=== PATIENT | female | born 1995 | race Two or more races ===

== ENCOUNTER 2025-01-21 18:39 | Emergency (ER) | payer OTHER, SELFPAY ==
[2025-01-21 18:39] VITALS: BMI 38.6
[2025-01-21 18:51] VITALS: BP 124/82; PULSE 88; RESP 18; TEMP 36.6; O2SAT 98
--- NOTE | 2025-01-21 19:06 | PD.EDBACK ---
ED Back Injury Pain RME/HPI General Chief Complaint: Back Pain/Injury Stated Complaint: WK INJURY TO BACK TODAY Time Seen by Provider: 01/21/25 19:04 Arrival date/time: 01/21/25 18:39 29F with no significant PMH presents to ED with low back pain after lifting a lot of heavy boxes at work. Patient denies bowel/bladder incontinence, fall/trauma, and saddle paresthesia. Limitations: no limitations Related Data Previous Rx's ?Medication ?Instructions ?Recorded bacitracin 500 unit/gram topical 1 applicatio topical Q12H #14 grams 03/27/19 ointment naproxen 500 mg tablet (Naprosyn) 500 mg PO BID PRN pain #30 tabs 05/02/19 Allergies Allergy/AdvReac Type Severity Reaction Status Date / Time No Known Allergies Allergy Verified 01/21/25 18:41 Review of Systems Review of Systems Systems Reviewed: All systems reviewed, normal except as documented Constitutional Constitutional: Reports system reviewed and no additional complaints, except as documented, Denies fever(s) and Denies headache(s) ENT Ears, Nose, Mouth, and Throat: Denies disequilibrium and Denies headache(s) Cardiovascular Cardiovascular: Reports system reviewed and no additional complaints, except as documented, Denies chest pain and Denies dyspnea Respiratory Respiratory: Reports system reviewed and no additional complaints, except as documented, Denies cough and Denies dyspnea Gastrointestinal Gastrointestinal: Reports system reviewed and no additional complaints, except as documented, Denies abdominal pain, Denies nausea and Denies vomiting Musculoskeletal Musculoskeletal: Reports as per HPI and Reports back pain Neurologic Neurologic: Reports system reviewed and no additional complaints, except as documented, Denies confusion, Denies disequilibrium and Denies headache(s) Psychiatric Psychiatric: Denies confusion Past Medical History Past Medical History CARDIAC: Negative Congestive Heart Failure RESPIRATORY: Negative Chronic Obstructive Pulmonary Disease (COPD) GENITOURINARY: Negative Renal Disease ENDOCRINE: Negative Diabetes Mellitus Type 1 or Diabetes Mellitus Type 2 Social History SMOKING STATUS: Never smoker ED Exam General Limitations: Present no limitations General appearance: Present alert and in no apparent distress Head Head exam: Present atraumatic Eye Eye exam: Present normal appearance, PERRL and EOMI ENT ENT exam: Present normal exam, normal oropharynx and mucous membranes moist Neck Neck exam: Present normal inspection, full ROM and trachea midline Chest Chest inspection: Present normal inspection and symmetric chest wall rise Respiratory Respiratory exam: Present normal lung sounds bilaterally Cardiovascular Cardiovascular exam: Present regular rate, normal rhythm and normal heart sounds Abdominal Exam Abdominal exam: Present soft and normal bowel sounds Extremities Exam Extremities exam: Present normal inspection and full ROM Back Exam Back exam: Present normal inspection and full ROM Neurological Exam Neurological exam: Present alert, oriented X3 and CN II-XII intact Psychiatric Psychiatric exam: Present normal affect and normal mood Skin Skin exam: Present warm, dry, intact and normal color Course Quality Measures none Orders Category Date Time Status Baclofen [Lioresal] Med 01/21/25 19:05 Discontinued 10 mg PO X1 ONE Ketorolac Inj [Toradol Inj] Med 01/21/25 19:05 Discontinued 60 mg IM X1 ONE Vital Signs Vital signs: Vital Signs Temperature 98 F 01/21/25 18:51 Pulse Rate 88 01/21/25 18:51 Respiratory Rate 18 01/21/25 18:51 Blood Pressure 124/82 01/21/25 18:51 Pulse Oximetry (%) 98 01/21/25 18:51 Oxygen Delivery Method Room Air 01/21/25 18:51 O2 at 98% on RA and WNLs Back Pain / Injury MDM Narrative MDM Narrative:: 29F with no significant PMH presents to ED with low back pain after lifting a lot of heavy boxes at work. Patient denies bowel/bladder incontinence, fall/trauma, and saddle paresthesia. Physical exam reveals uncomfortable-appearing female. Patient is afebrile and alert. Meds and prison classification counselor given. Patient data External records reviewed:: [facility] previous records Clinical information provided by:: patient Social determinants that could affect healthcare access:: none Patient has the following chronic illnesses:: none How is presenting disease/condition affected by chronic disease/condition?: no chronic disease Evaluation data The following diagnostics were reviewed and interpreted by me:: other (specify) (none) Lab and/or radiology exams considered but not ordered:: not ordered Interpretation Summary: n/a Medications / Prescriptions Medications or Prescriptions considered but not ordered:: ordered Medication administrations:: Medication Administration History Discontinued Medications Baclofen (Baclofen 10 Mg Tablet) 10 mg PO X1 ONE Stop: 01/21/25 19:06 Last Admin: 01/21/25 19:25 Dose: 10 mg Documented By: MAINE Ketorolac Tromethamine (Ketorolac Inj 60 Mg/2 Ml Vial) 60 mg IM X1 ONE Stop: 01/21/25 19:06 Last Admin: 01/21/25 19:22 Dose: 60 mg Documented By: JE above Consultations Consultation(s) initiated? (list below): No Diagnosis Differential diagnosis back pain/injury: lumbar radiculopathy, sciatica, strain of lumbar region, renal colic, pyelonephritis, thoracic back pain, AAA and discitis Most likely diagnosis given after review of the tests above:: strain of lumbar region Admission Indicated Admission indicated?: not indicated Admission Request Was there a request for admission?: No Disposition Plan Disposition Plan: Discharge Discharge Attestation Discharge Attestation: The patient and all family members were given an opportunity to ask questions and understood the discharge instructions. Discharge instructions specifically effects, indications for sooner follow up or return to the emergency department, and the expected course of current diagnosis. Patient condition: Stable Discharge Plan Plan Patient Disposition: HOME (Self Care) Discharge Disposition comment: Stable Prescriptions/Referrals Prescriptions/Med Rec: No Action naproxen [Naprosyn] 500 mg tablet 500 mg PO BID PRN (Reason: pain) Qty: 30 0RF bacitracin 500 unit/gram ointment 1 applicatio TOPICAL Q12H Qty: 14 0RF Referrals: Jeff Wilson MD [Primary Care Provider] - In 1 week Problem List Clinical Impression: Strain of lumbar region Patient/Caregiver Discharge Instructions Education Materials: ED Back Sprain/Strain Additional Instructions: Please follow-up with PCP within 24-48 hours and return immediately if symptoms worsen. If problem persists, recommend outpatient PT and/or MRI follow-up. In the meantime, rest, use ice/heat, and/or compression. Print Language: Romanian Stand Alone Forms: Patient Portal Info Letter FRANK/FORENSIC SCIENCE TECHNICIAN Supervising Physician FRANK/ALMA Supervising Physician: Dr. Maria
[2025-01-21] MEDS: KETOROLAC INJ 60 MG/2 ML VIAL IM (19:22)
[2025-01-21] MEDS: BACLOFEN 10 MG TABLET PO (19:25)
== END 2025-01-21 19:56 | disposition home or self-care (01) ==
PROVIDERS: Emergency Provider Emergency Medicine; PCP Family Medicine
DX: S39.012A Strain of muscle, fascia and tendon of lower back, initial encounter (principal); X50.0XXA Overexertion from strenuous movement or load, initial encounter
CPT/HCPCS: 96372; 99282; J1885; A9270

== ENCOUNTER 2025-03-01 22:33 | Observation (INO) | payer MEDICAID, SELFPAY ==
[2025-03-01 22:34] VITALS: BMI 37.8
--- NOTE | 2025-03-01 22:42 | EDNOTE_ITS ---
ED Abdominal Pain RME/HPI General Chief Complaint: Abdominal Pain Stated complaint: RUQ PAIN Time seen by provider: 03/01/25 23:04 Arrival date/time: 03/01/25 22:33 RME / HPI RME / HPI narrative: See [facility] for Dr. Good's HPI documentation. Related Data Previous Rx's ?Medication ?Instructions ?Recorded bacitracin 500 unit/gram topical 1 applicatio topical Q12H #14 grams 03/27/19 ointment naproxen 500 mg tablet (Naprosyn) 500 mg PO BID PRN pa in #30 tabs 05/02/19 Allergies Allergy/AdvReac Type Severity Reaction Status Date / Time No Known Allergies Allergy Verified 01/21/25 18:41 Review of Systems Review of Systems Systems Reviewed: All systems reviewed, normal except as documented Past Medical History Past Medical History CARDIAC: Negative Congestive Heart Failure RESPIRATORY: Negative Chronic Obstructive Pulmonary Disease (COPD) GENITOURINARY: Negative Renal Disease ENDOCRINE: Negative Diabetes Mellitus Type 1 or Diabetes Mellitus Type 2 Social History SMOKING STATUS: Never smoker ED Exam Narrative Physical exam: See [facility] for Dr. Good's physical exam documentation. Course Quality Measures none Orders Category Date Time Status MRI Screening NOW Care 03/02/25 01:57 Active Saline [Insert IV] NOW Care 03/01/25 23:05 Active MR MRCP Stat Exams 03/02/25 Ordered US gall bladder Stat Exams 03/01/25 23:06 Taken Amylase Stat Lab 03/01/25 23:20 Completed Bilirubin,Direct Stat Lab 03/01/25 23:20 Completed CBC Stat Lab 03/01/25 23:20 Completed CMP [Comprehensive Metabolic Panel] Stat Lab 03/01/25 23:20 Completed HCG,Qualitative Serum Stat Lab 03/01/25 23:20 Completed Lipase Stat Lab 03/01/25 23:20 Completed Magnesium Stat Lab 03/01/25 23:20 Completed UA, C/S IF [Urinalysis, C/S if Indicated] Stat Lab 03/01/25 23:42 Completed Urine Culture Stat Lab 03/01/25 23:42 Received Ketorolac Inj [Toradol Inj] Med 03/01/25 23:05 Discontinued 30 mg IVP X1 ONE Morphine* Inj Med 03/01/25 23:05 Discontinued 4 mg IV X1 ONE Ondansetron Inj [Zofran Inj] Med 03/01/25 23:05 Discontinued 4 mg IVP X1 ONE Piper/Tazo 3.375 gm Premix [Zosyn] Med 03/02/25 01:58 Discontinued 3.375 gm in 50 ml IV X1 Sodium Chloride 0.9% 1000 ml [Ns] 1,000 ml Med 03/02/25 02:31 Active IV 200 mls/hr Sodium Chloride 0.9% 1000 ml [Ns] 1,000 ml Med 03/01/25 23:05 Discontinued IV 999 mls/hr cefTRIAXone/D5w 1gm IV premix [Rocephin/D5w 1gm IV Med 03/02/25 00:05 Discontinued premix] 1 gm in 50 ml IV X1 Vital Signs Vital signs: Vital Signs Temperature 98.7 F 03/01/25 23:03 Pulse Rate 82 03/01/25 23:03 Respiratory Rate 20 03/01/25 23:03 Blood Pressure 146/85 H 03/01/25 23:03 Pulse Oximetry (%) 99 03/01/25 23:03 Oxygen Delivery Method Room Air 03/01/25 23:03 Abdominal Pain MDM MDM Narrative MDM Narrative:: This section includes all my notes and documentations, including HPI, PE, and ED course. Pramod Good MD HPI: 29yo female here with severe upper abdominal pain and vomiting. Had similar attack about a year ago and a few months ago. In the past week, reports daily attacks. No fever. No hematemesis or coffee-ground emesis. No rectal bleeding or tarry stools. No history abdominal surgery. No other complaints. ROS: All negative except as documented in HPI. Physical Exam: General: Alert and oriented. In severe pain. Eyes: Conjunctivae and lids clear. ENT: No nasal congestion. Neck: Supple. Heart: RRR. Lungs: No respiratory distress. Good air movement. No rhonchi, wheezing, rales. Abdomen: Soft with upper quadrant tenderness. Back: No CVA tenderness. Skin: Warm and dry. Neuro: Alert and oriented X 3. I reviewed all diagnostic test results. My review of the gallbladder US report is cholecystitis and dilated common bile duct. Blood tests are remarkable for WBC 12.1. UA showed positive leukocyte esterase, 6 RBCs, 21 WBCs, and 1+ bacteria. At this point, diagnoses include: Cholecystitis CBD dilatation UTI Treatment here included: IV fluid Rocephin 1 g IV Toradol 30 mg IV Morphine 4 mg IV Zofran 4 mg IV Zosyn 3.375 g IV MRCP ordered. Patient felt much better. At 6 AM on 03/02/2025, the care of the patient was transferred to Dr. Leon. Pramod Good MD Patient data External records reviewed:: [facility] previous records (Per chart review, patient has no relevant previous ED visits.) Clinical information provided by:: patient Social determinants that could affect healthcare access:: none Patient has the following chronic illnesses:: none How is presenting disease/condition affected by chronic disease/condition?: no chronic disease Evaluation data The following diagnostics were reviewed and interpreted by me:: lab results and radiology exam(s) Lab and/or radiology exams considered but not ordered:: none Interpretation Summary: I reviewed all diagnostic test results. My review of the gallbladder US report is cholecystitis and dilated common bile duct. Blood tests are remarkable for WBC 12.1. UA showed positive leukocyte esterase, 6 RBCs, 21 WBCs, and 1+ bacteria. Medications / Prescriptions Medications or Prescriptions considered but not ordered:: none Medication administrations:: Medication Administration History Sodium Chloride (Ns) 1,000 mls @ 200 mls/hr IV .Q5H ONE Stop: 03/02/25 07:30 Last Admin: 03/02/25 02:35 Dose: 200 mls/hr Documented By: ELO Discontinued Medications Sodium Chloride (Ns) 1,000 mls @ 999 mls/hr IV .Q1H1M ONE Stop: 03/02/25 00:05 Last Infusion: 03/02/25 02:05 Dose: Infused Documented By: Admin: 03/02/25 00:31 Dose: 999 mls/hr Documented By: JAN Ceftriaxone Sodium/Dextrose (Rocephin/D5w 1gm Iv Premix) 1 gm in 50 mls @ 100 mls/hr IV X1 ONE Stop: 03/02/25 00:34 Last Infusion: 03/02/25 01:02 Dose: Infused Documented By: Admin: 03/02/25 00:31 Dose: 100 mls/hr Documented By: JAN Piperacillin/Tazobactam/Dextrose (Zosyn) 3.375 gm in 50 mls @ 100 mls/hr IV X1 ONE; Protocol Stop: 03/02/25 02:27 Last Infusion: 03/02/25 02:31 Dose: Infused Documented By: Admin: 03/02/25 02:08 Dose: 100 mls/hr Documented By: ELO Ketorolac Tromethamine (Ketorolac Inj 30 Mg/Ml Vial) 30 mg IVP X1 ONE Stop: 03/01/25 23:06 Last Admin: 03/02/25 00:31 Dose: 30 mg Documented By: JAN Morphine Sulfate (Morphine Sulf Inj 4 Mg/Ml Vial) 4 mg IV X1 ONE Stop: 03/01/25 23:06 Last Admin: 03/02/25 00:33 Dose: 4 mg Documented By: JAN Ondansetron HCl (Ondansetron Inj 2 Mg/Ml Inj 2 Ml) 4 mg IVP X1 ONE; Protocol Stop: 03/01/25 23:06 Last Admin: 03/02/25 00:33 Dose: 4 mg Documented By: JAN Treatment here included: IV fluid Rocephin 1 g IV Toradol 30 mg IV Morphine 4 mg IV Zofran 4 mg IV Zosyn 3.375 g IV Consultations Consultation(s) initiated? (list below): No Diagnosis Differential diagnosis abdominal pain: acute appendicitis, calculus of kidney, constipation, diverticulitis, endometriosis, gastroenteritis, pancreatitis, small bowel obstruction and other (Biliary colic, PUD, gastritis, GERD) Most likely diagnosis given after review of the tests above:: At this point, diagnoses include: Cholecystitis CBD dilatation UTI Admission Indicated Admission indicated?: not indicated Explain why admission is indicated or not indicated:: Complete diagnostic tests not performed. Admission Request Was there a request for admission?: No Disposition Plan Disposition Plan: other (specify) (Signed out to Dr. Leon at 6 AM.) Discharge Plan Prescriptions/Referrals Prescriptions/Med Rec: No Action naproxen [Naprosyn] 500 mg tablet 500 mg PO BID PRN (Reason: pain) Qty: 30 0RF bacitracin 500 unit/gram ointment 1 applicatio TOPICAL Q12H Qty: 14 0RF Referrals: Jeff Wilson MD [Primary Care Provider, Family Practice] - In 1 week Problem List Clinical Impression: Cholecystitis, Common bile duct dilatation, UTI (urinary tract infection) Patient/Caregiver Discharge Instructions Print Language: Pakistani
[2025-03-01 23:03] VITALS: BP 146/85; PULSE 82; RESP 20; TEMP 37.1; O2SAT 99
--- NOTE | 2025-03-01 23:06 | XR_ITS ---
Examination: Abdomen sonogram, Limited Date and time of exam: March 01, 2025, 11:50 p.m. INDICATIONS: Worsening right upper abdominal pain beginning 2 days ago Technique: Real-time white scale transabdominal sonographic images of the upper abdomen obtained. Findings: Gallbladder sludge versus small stones Gallbladder wall 0.5 cm Common bile duct 0.7 cm with internal echogenicity Pancreatic head 2.5 cm Liver 14.0 cm Normal hepatopetal portal venous flow Patent IVC IMPRESSION: Recommend MRCP follow-up to exclude acute cholecystitis and to assess the enlarged common bile duct and exclude common bile duct stones
[2025-03-01 23:27] LABS: Basophils # (Auto) 0.0 Thou/mm3 (0.0-0.2); Basophils % (Auto) 0 % (0-2.5); Eosinophils # (Auto) 0.1 Thou/mm3 (0.0-0.5); Eosinophils % (Auto) 1 % (0-10); Hematocrit 32.9 % (36.0-46.0); Hemoglobin 10.2 g/dL (12.0-16.0); Immature Granulocytes Auto 0.03 Thou/mm3 (0.00-0.00); Lymphocytes # (Auto) 3.6 Thou/mm3 (1.0-4.8); Lymphocytes % (Auto) 29 % (10-50); Mean Corpuscular HGB Conc 31.0 g/dl (31.0-37.0); Mean Corpuscular Hemoglobin 21.7 pg (25.0-35.0); Mean Corpuscular Volume 70 fL (80-100); Monocytes # (Auto) 0.6 Thou/mm3 (0.0-0.8); Monocytes % (Auto) 5 % (0-12); Neutrophils # (Auto) 7.8 Thou/mm3 (1.8-7.7); Neutrophils % (Auto) 65 % (37-80); Nucleated Red Blood Cell # 0.00 Thou/mm3 (0.00-0.00); Nucleated Red Blood Cell % 0 /100 WBC (0); Platelet Count 262 Thou/mm3 (140-440); RDW Standard Deviation 47.0 fL (36.4-46.3); Red Blood Count 4.69 Miln/mm3 (4.00-5.20); White Blood Count 12.1 Thou/mm3 (3.6-11.0)
[2025-03-01 23:43] LABS: HCG,Qualitative Serum Negative
[2025-03-01 23:50] LABS: Collection Type, Urine Clean Catch
[2025-03-01 23:57] LABS: Bacteria,Urine 1+; Bilirubin,Urine Negative (Negative); Blood,Urine 3+ (Negative); Clarity,Urine Clear (Clear/Hazy); Color,Urine Lt-Yellow (Lt Yel-Yel); Glucose, Urine Negative (Negative); Ketones,Urine Negative (Negative); Leukocyte Esterase,Urine Positive (Negative); Nitrite,Urine Negative (Negative); PH,Urine 6.0 (5.0-7.0); Protein,Urine Negative (Neg - Trace); RBC,Urine 6 /hpf (0-3); Specific Gravity,Urine 1.022 (1.001-1.035); Squamous Epithelial Cell,Urine 4 /hpf (0-5); Urobilinogen,Urine Negative mg/dL (0.0-1.0); WBC,Urine 21 /hpf (0-5)
[2025-03-01 23:58] LABS: Culture Indicated,Urine Yes
[2025-03-02] VITALS (14 sets, daily range): BP systolic 98–139; BP diastolic 56–81; PULSE 52–78; RESP 12–20; TEMP 36–36.8; O2SAT 97–100
--- NOTE | 2025-03-02 | XR_ITS ---
MRI abdomen, without contrast. MRCP Date and time of exam: March 02, 2025, 0713 hours INDICATIONS: Severe upper abdominal pain and vomiting this week, enlarged common bile duct on gallbladder sonogram last evening Technique: Multiple axial and coronal images of the abdomen have been obtained with the Siemens 1.5T MRI scanner. Images obtained included T1 weighted transverse images, T2-weighted transverse images, T2-weighted transverse images fat-suppressed, T2 weighted haste fat suppressed transverse images, T1 weighted images, in and out of phase images, T2-weighted coronal images, breath hold, T2 weighted haze coronal images as well as T2 weighted coronal thick slab images, MRCP. Findings: No focal liver lesions Gallstones with edematous thickened gallbladder wall Common bile duct 5 mm no common hepatic or common bile duct stones No pancreatic mass Spleen not enlarged No ascites No hydronephrosis IMPRESSION: Acute calculus cholecystitis No common bile duct or common hepatic duct stones noted Negative for pancreatitis
[2025-03-02 00:04] LABS: Alanine Aminotransferase < 7 U/L (10-49); Albumin, Serum 4.4 gm/dL (3.5-5.0); Albumin/Globulin Ratio 1.3 (1.2-2.2); Alkaline Phosphatase 118 U/L (46-116); Amylase 53 U/L (30-118); Anion Gap 9 (7-16); Aspartate Amino Transferase 17 U/L (0-34); BUN/Creatinine Ratio 13 Ratio (12-20); Bilirubin,Direct < 0.1 mg/dL (0.0-0.3); Bilirubin,Total 0.2 mg/dL (0.3-1.2); Blood Urea Nitrogen 12 mg/dL (9-23); Calcium 9.3 mg/dL (8.3-10.6); Calcium (Corrected) 9.3 mg/dL (8.5-10.1); Carbon Dioxide 24.7 mMol/L (20.0-31.0); Chloride 106 mMol/L (98-107); Creatinine (Component) 0.9 mg/dL (0.6-1.3); Estimated Creatinine Clearance 93.7 mL/min (>60); Globulin 3.4 gm/dL (2.3-3.5); Glucose 108 mg/dL (74-106); Lipase 49 U/L (12-53); Magnesium 2.0 mg/dL (1.6-2.6); Osmolality,Calculated 280 (275-295); Potassium 4.0 mMol/L (3.4-5.1); Sodium 140 mMol/L (136-145); Total Protein 7.8 gm/dL (5.7-8.2); eGFR > 60 See Note
[2025-03-02] MEDS: SODIUM CHLORIDE 0.9% 1000 ML 1,000 ML 999 ML IV (00:31)
[2025-03-02] MEDS: KETOROLAC INJ 30 MG/ML VIAL IVP (00:31)
[2025-03-02] MEDS: cefTRIAXone/D5w 1gm IV premix 1 GM/50 ML BAG IV (00:31)
[2025-03-02] MEDS: MORPHINE SULF INJ 4 MG/ML VIAL IV (00:33)
[2025-03-02] MEDS: ONDANSETRON INJ 2 MG/ML INJ 2 ML 4 MG IVP ×2 (00:33→18:34)
--- NOTE | 2025-03-02 01:54 | PRELIM_ITS ---
Gallbladder ultrasound with Doppler and wave Doppler spectral analysis. March 01, 2025 at 2340 hours Clinical history: Right upper quadrant tenderness. Comparison: None available at the time of this report. Findings: The visualized liver is normal in echogenicity without mass or ductal dilatation. Gallstones. Gallbladder wall thickening. No pericholecystic fluid is identified. The common duct is dilated in caliber at 7.0 mm. No free fluid is demonstrated on the submitted images. The portal vein is patent with hepatopetal flow and normal wave Doppler spectral analysis. Mckeon sign is not available at the time of this report. Impression: Gallstones associated with gallbladder wall thickening are highly suspicious for acute cholecystitis. Dilated common bile duct, suspicious for choledocholithiasis. Consider correlation with MRCP. Report Electronically Signed By: Fernando Navarrete 03/02/2025 1:53:40 AM [EST]
[2025-03-02] MEDS: PIPER/TAZO 3.375 GM PREMIX 3.375 GM/50 ML BAG IV (02:08)
[2025-03-02] MEDS: SODIUM CHLORIDE 0.9% 1000 ML 1,000 ML 200 ML IV (02:35)
--- NOTE | 2025-03-02 06:06 | PD.EDADDENDU ---
Emergency Room Addendum Addendum Narrative: 0600: Care assumed from Dr. Good, the previous shift emergency physician. Past medical, surgical, social and family history reviewed. Vitals and home medications reviewed. I will assume the care of the patient at this time, pending MRCP and final disposition. Please refer to the emergency department record for history and examination from initial visit.?The following addendum documentation note is intended to reflect any pending information, findings, or radiology results not included in the patient?s initial chart. 1005a: I spoke with surgeon Dr. Betancourt. Discussed patients PMHx, HPI, ED course, exam findings, labs, and radiology results. States he will come evaluate the patient in the ED. 1037a: Surgeon Dr. Betancourt accepts the patient for admission. RADIOLOGY Ordering Physician: Pramod Good MD Date of Service: 03/02/25 Procedure(s): MR MRCP Accession Number(s): [id number] cc: Jeff Wilson MD; Pramod Good MD; Zenon Truong MD~ MRI abdomen, without contrast. MRCP Date and time of exam: March 02, 2025, 0713 hours INDICATIONS: Severe upper abdominal pain and vomiting this week, enlarged common bile duct on gallbladder sonogram last evening Technique: Multiple axial and coronal images of the abdomen have been obtained with the Siemens 1.5T MRI scanner. Images obtained included T1 weighted transverse images, T2-weighted transverse images, T2-weighted transverse images fat-suppressed, T2 weighted haste fat suppressed transverse images, T1 weighted images, in and out of phase images, T2-weighted coronal images, breath hold, T2 weighted haze coronal images as well as T2 weighted coronal thick slab images, MRCP. Findings: No focal liver lesions Gallstones with edematous thickened gallbladder wall Common bile duct 5 mm no common hepatic or common bile duct stones No pancreatic mass Spleen not enlarged No ascites No hydronephrosis IMPRESSION: Acute calculus cholecystitis No common bile duct or common hepatic duct stones noted Negative for pancreatitis Dictated By: Zenon Truong MD Signed By: <Electronically signed by Zenon Truong MD in OV>03/02/25 0817
--- NOTE | 2025-03-02 07:21 | PC.NURSE ---
Patient is alert and oriented, ambulatory, denies abd pain at this time. Patient ambulated to restroom, no distress noted. highway technician here to take patient for MRCP.
[2025-03-02] MEDS: ceFAZolin/D5W 2 GM IV 2 GM/100 ML BAG IV (13:05)
[2025-03-02] MEDS: SODIUM CHLORIDE 0.9% 1000 ML 1,000 ML 125 ML IV (13:06)
--- NOTE | 2025-03-02 13:36 | PC.SS ---
This MANAGER MEDICAID software development intern completed bedside initial; assessment with patient Erika Glez, during assessment her mother Ayesha Hidalgo was at bedside. Patient was able to confirm her demographics, her [address] and her telephone number [phone]. She confirmed her emergency contact as her father Yoshi Brandt with a telephone number of [phone] and his mailing address. She denies having POA or advance directive in place, says she lives alone and does not require any DME. Patient states she does not have primary PCP but does go to [facility] to be seen by any doctor available, her preferred pharmacy is at [facility]. Patient states when she is ready for DC her parents will be transporting her home.
--- NOTE | 2025-03-02 16:37 | PD.SURHP ---
HPI Date of Admission 03/02/25 15:09 Chief Complaint Chief Complaint: This patient is a 29-year-old female who is admitted with a diagnosis of acute cholecystitis and cholelithiasis HPI History of present illness revealed that the patient was in her usual health until yesterday when she started having severe pain came to the emergency room. The pain was located in the epigastric region and to the right. She has had this pain for the past few weeks and she has gone to the [facility] She had an ultrasound which revealed stones. She came to the emergency room also because of the increasing pain and is staying last night here. MRCP was performed because of the dilated common bile duct which showed acute cholecystitis with stones and therefore surgical consultation was obtained. The pain medication helped and her pain is better Past Medical History Past Medical History CARDIAC: Negative Congestive Heart Failure RESPIRATORY: Negative Respiratory Disorders or Chronic Obstructive Pulmonary Disease (COPD) GENITOURINARY: Negative Renal Disease ENDOCRINE: Negative Diabetes Mellitus Type 1 or Diabetes Mellitus Type 2 Social History SMOKING STATUS: Never smoker Meds Home Medications and Allergies Allergies Allergy/AdvReac Type Severity Reaction Status Date / Time No Known Allergies Allergy Verified 01/21/25 18:41 Exam Vital Signs Temp Pulse Resp BP Pulse Ox O2 Del Method 97.9 F 52 L 16 118/56 L 99 Room Air 03/02/25 13:35 03/02/25 13:35 03/02/25 13:35 03/02/25 13:35 03/02/25 13:35 03/02/25 13:35 Narrative Exam Physical examination revealed an obese female he is 5 foot 1 inch tall weighing 200 pounds she says she is 215 pound. Routine Abdominal Exam Comments: Examination of the abdomen showed tenderness in the right upper quadrant with a positive Mckeon sign rest of the examination of the abdomen is negative Routine Rectal Exam Comments: Deferred Routine Exam Comments: Deferred Routine Extremities Exam Comments: Within normal limits Results Results: Laboratory Laboratory Narrative: Laboratory workup showed mild leukocytosis with 12,800 WBC with a shift to the left. Liver enzymes are normal. Results: Imaging Imaging narrative: Ultrasound showed gallbladder sludge and possibly small gallstones. MRCP was done because to evaluate the dilated common bile duct which was 7 mm in size. This showed acute calculous cholecystitis but no common bile duct stone Assessment & Plan Additional Assessment Additional comments: Impression: Acute cholecystitis with cholelithiasis Morbid obesity Plan Plan: I advised the patient to undergo laparoscopic cholecystectomy because of this recurrent pain and atypical biliary colic as well as findings on the ultrasound. The MRCP definitely shows a stone. I explained to her that laparoscopic cholecystectomy will be performed and there is a possibility she may have open cholecystic. The risks of the procedure including biliary tract injury and injury to the small bowels requiring further surgery etc. were discussed with her and she is agreeable. Quality Measures Quality Measures none
--- NOTE | 2025-03-02 18:02 | SUR.PHASEI ---
[id number] patient arrived to recovery resting comfortably in [facility], talking with staff, breathing unlabored, vital signs stable, denies pain, dressing intact to abdomen; sutures, gauze, medipore tape, no bleeding noted, report received from Dr. Lou and Zaid ELIZABETH
--- NOTE | 2025-03-02 18:03 | ESOP_ITS ---
Date of Procedure 03/02/25 Pre Op Diagnosis Acute calculous cholecystitis Post Op Diagnosis Same Procedure Laparoscopic cholecystectomy Findings Patient was found to have inflamed gallbladder with edema of the gallbladder wall and 1 solid stone measuring 8 cm in diameter Procedure Description After endotracheal anesthesia was given the patient was placed in supine position and the abdomen was prepped with chloroprep solution and draped in a sterile manner. After time out was performed I injected a few cc of of half percent Marcaine with epinephrine below the umbilicus and I made an incision for about 3 cm in length. The fascia was cleaned and Veress needle was inserted to create a pneumoperitoneum up to 15 mmHg. Then introduced a 12 mm trocar and a 10 mm camera through the fascia and I inspected the intra-abdominal organs as well as the gallbladder and the liver. Another 5 mm trocar was inserted in the epigastric region under direct vision after injecting some local anesthesia. At this time the patient was kept in reverse Trendelenburg position with the left lateral tilt. The third 5 mm trocar was inserted over the mid axillary line under direct vision and a Shahriar and Melina grasper was used to hold the fundus of the gallbladder. The retraction was carried out by the oral surgery assistant moving the fundus of the gallbladder towards the right shoulder of the patient to create enough traction. I placed a another 5 mm trocar in the midaxillary line just lateral to the rectus muscle under direct vision. I used a fenestrated grasper to retract the neck of the gallbladder laterally towards the patient's right hip. The Calot's triangle was exposed and I achieved the critical view of safety as follows: I dissected out the fatty tissue from the hepatocystic triangle and cleared this area. I also dissected inferior and posterior to the gallbladder to identify the cystic duct and the gallbladder wall. Then superiorly I dissected along the cystic plate up to lower one third third of the gallbladder to lift the gallbladder from the liver. At this time I confirmed that only 2 structures entering the gallbladder were cystic artery and the cystic duct. The common duct was seen distally but no dissection was carried out around the duct. I did not see any need for operative cholangiogram in this patient. The cystic duct was clipped doubly and then divided and cystic artery was similarly dealt with. Then the gallbladder was removed from the liver bed using Harmonic jaspal to control the small blood vessels as the dissection proceeded. Then the gallbladder was from the liver bed completely and delivered through the umbilical port using an Endopouch. The liver bed was coagulated with cautery to obtain satisfactory hemostasis. The trocars were pulled out from the abdominal cavity and the fascia at the umbilical incision was closed with interrupted 0 Ethibond. Subcutaneous tissues was closed with 3- 0 chromic and injected a few cc of half percent Marcaine with epinephrine and the skin was closed with interrupted 4-0 nylon stitches at all the trocar sites. Dressing was applied with 2 x 2 and Tegaderm. Patient tolerated the procedure well and returned to recovery room in stable condition. Anesthesia GETA Pathology / specimen Other (Gallbladder and the stone) IVF Infused 800 Estimated Blood Loss 30 Surgeon Alise Oakes MD Surgical Staff Operation Date: 03/02/25 16:00 Case Staff Anesthesiologist: Vineet Lou RN First Assistant: Alea Lal
[2025-03-02] MEDS: HYDROmorphone INJ 2 MG/ML VIAL 0.4 MG IVP ×2 (18:14→18:22)
--- NOTE | 2025-03-02 18:28 | SUR.PHASEI ---
Dr. Lou at bedside verbal order read-back for Salters 10-325 oral tab x1 for pain, will enter in order and administer per MD order
--- NOTE | 2025-03-02 19:11 | SUR.PHASEI ---
191 Patient meets discharge criteria from recovery, awake and alert, breathing unlabored, vital signs stable, dressing intact; no bleeding noted, per patient her pain is tolerable, drinking fluids; denies nausea, assisted with dressing into her clothing by staff, discharge instructions given to patient and patients , signed discharge instructions. Patient given all her belongings prior to discharge, transported via wheelchair and left in a private vehicle.
== END 2025-03-02 19:11 | disposition home or self-care (01) ==
LOC: SERX 03-02 15:05 → SERHOLD 03-02 16:01 → S2EX 03-02 18:16 → SERHOLD 03-03 06:48
PROVIDERS: Emergency Medicine; Admitting Provider Surgery; Emergency Provider Emergency Medicine; PCP Family Medicine; Visit Provider Surgery
PROC: 0FT44ZZ Resection of Gallbladder, Percutaneous Endoscopic Approach (ICD-10-PCS; CPT 47562; principal; 2025-03-02 16:30)
DX: K80.62 Calculus of gallbladder and bile duct with acute cholecystitis without obstruction (principal); E66.01 Morbid (severe) obesity due to excess calories; Z68.37 Body mass index [BMI] 37.0-37.9, adult
CPT/HCPCS: 47562; 36415; 74181; 76705; 80053; 81001; 82150; 82248; 83690; 83735; 84703; 85025; 87077; 87086; 87186; 96361; 96365; 96366; 96375; 96376; 99285; A4217; A4649; G0378; J0131; J0689; J0696; J1171; J1885; J2250; J2270; J2405; J2543; J2704; J3010; J3490; J7030; A9270